=== PATIENT | male | born 1955 | race Caucasian/White ===

== ENCOUNTER 2017-08-25 07:33 | Day surgery (SDC) | payer OTHER ==
[2017-08-25] MEDS ORDERED: PROPOFOL 20 ML (10:17)
[2017-08-25] MEDS ORDERED: MIDAZOLAM 1 MG/ML 2 ML INJ (10:17)
== END 2017-08-25 11:55 | disposition home or self-care (01) ==
LOC: GIL 07:33
DX: Z12.11 Encounter for screening for malignant neoplasm of colon (principal); K64.4 Residual hemorrhoidal skin tags; K64.8 Other hemorrhoids; Q43.8 Other specified congenital malformations of intestine; I10 Essential (primary) hypertension; E11.9 Type 2 diabetes mellitus without complications; E66.01 Morbid (severe) obesity due to excess calories; Z68.43 Body mass index [BMI] 50.0-59.9, adult
CPT/HCPCS: 45378; 82962

== ENCOUNTER 2017-12-08 23:28 | Inpatient (IN) | payer OTHER ==
[2017-12-09] MEDS ORDERED: ALBUTEROL/IPRATROPIUM (NEB) 3 ML AMP HHN (00:30)
[2017-12-09] MEDS ORDERED: ONDANSETRON 4 MG INJ IV (00:30)
[2017-12-09] MEDS ORDERED: GLUCOSE GEL 15 GRAM TUBE PO ×2 (00:30)
[2017-12-09] MEDS ORDERED: NACL 0.9% 3 ML SYG IV (00:30)
[2017-12-09] MEDS ORDERED: DEXTROSE 50% 50 ML SYRINGE IV ×2 (00:30)
[2017-12-09] MEDS ORDERED: ACETAMINOPHEN 650 MG SUPP PR (00:30)
[2017-12-09] MEDS ORDERED: GLUCAGON 1 MG INJ IM (00:30)
[2017-12-09] MEDS ORDERED: GLUCOSE GEL 15 GRAM TUBE BUCCAL (00:30)
[2017-12-09] MEDS: INSULIN ASPART [NOVOLOG] 3 ML PEN SC ×6 (00:33→21:00)
[2017-12-09] MEDS: DEXTROSE 5%-0.45% NACL 1,000 ML IV (00:33)
[2017-12-09 00:48] LABS: ADD MAN DIFF? NO
[2017-12-09 00:50] LABS: WHITE BLOOD COUNT 10.1 10^3/ul (4.8-10.8)
[2017-12-09 00:50] LABS: BASOPHILS % 0.1 % (0.0-2.0); EOSINOPHILS # 0.1 10^3/ul (0.0-0.5); EOSINOPHILS % 0.6 % (0.0-7.0); HEMATOCRIT 37.1 % (42.0-52.0); HEMOGLOBIN 11.9 g/dl (14.0-18.0); LYMPHOCYTES # 1.4 10^3/ul (0.8-2.9); LYMPHOCYTES % 13.8 % (15.0-51.0); MEAN CORPUSCULAR HEMOGLOBIN 29.2 pg (29.0-33.0); MEAN CORPUSCULAR HGB CONC 32.1 g/dl (32.0-37.0); MEAN CORPUSCULAR VOLUME 90.9 fl (82.0-101.0); MEAN PLATELET VOLUME 9.7 fl (7.4-10.4); MONOCYTE # 0.9 10^3/ul (0.3-0.9); MONOCYTES % 8.4 % (0.0-11.0); NEUTROPHIL # 7.7 10^3/ul (1.6-7.5); NEUTROPHILS % 76.8 % (39.0-77.0); PLATELET COUNT 167 10^3/UL (140-415); RED BLOOD COUNT 4.08 10^6/ul (4.70-6.10); RED CELL DISTRIBUTION WIDTH 15.6 % (11.5-14.5)
[2017-12-09 01:04] LABS: AADO2 Arterial 40.1 mmHg (7.0-24.0); Allen Test ACCEPTAB; Arterial Base Excess 2.5 mmol/L (-3.0-3); Arterial Blood Gas Oxygen Sat 98.2 mmHG (95.0-98.0); Arterial COHb 0.8 % (0.0-3.0); Arterial Fraction of Oxyhgb 97.4 % (93.0-99.0); Arterial HCO3 27.1 mmol/L (22.0-26.0); Arterial MetHb 0 % (0.0-1.5); Arterial Total Hemglobin 12.9 g/dl (12.0-18.0); Arterial pCO2 41.8 mmhg (35-45); MODE NASAL CANNULA; Site Right Radial
[2017-12-09 01:08] LABS: ALANINE AMINOTRANSFERASE 30 IU/L (13-69); ALBUMIN 3.5 g/dl (3.3-4.9); ALBUMIN/GLOBULIN RATIO 0.87; ALKALINE PHOSPHATASE 108 IU/L (42-121); ANION GAP 10 (8-16); ASPARTATE AMINO TRANSFERASE 32 IU/L (15-46); BILIRUBIN,INDIRECT 0.8 mg/dl (0-1.1); BILIRUBIN,TOTAL 0.8 mg/dl (0.2-1.3); BLOOD UREA NITROGEN 12 mg/dl (7-20); CALCIUM 8.8 mg/dl (8.4-10.2); CARBON DIOXIDE 34 mmol/L (21-31); CHLORIDE 98 mmol/L (97-110); CREATININE 0.59 mg/dl (0.61-1.24); GLUCOSE 141 mg/dl (70-220); MAGNESIUM 1.4 mg/dl (1.7-2.5); PHOSPHORUS 4.7 mg/dl (2.5-4.9); POTASSIUM 3.9 mmol/L (3.5-5.1); SODIUM 138 mmol/L (135-144); TOTAL PROTEIN 7.5 g/dl (6.1-8.1)
[2017-12-09] MEDS ORDERED: ACCU-CHEK XX (02:00)
[2017-12-09] MEDS: MAGNESIUM SULFATE 3 GM in DEXTROSE 5% 100 ML IVPB (02:11)
[2017-12-09] MEDS: morphine 2 MG INJ IV ×4 (08:08→21:42)
[2017-12-09] MEDS: THIAMINE 100 MG TAB PO (16:30)
[2017-12-09] MEDS: LACTATED RINGER'S 1,000 ML IV (16:30)
[2017-12-09] MEDS: INSULIN GLARGINE [LANTus] (100 UNITS/ML) SYG SC (20:00)
[2017-12-10] MEDS: INSULIN ASPART [NOVOLOG] 3 ML PEN SC ×6 (01:00→21:00)
[2017-12-10 05:07] LABS: ADD MAN DIFF? NO
[2017-12-10 05:33] LABS: BASOPHILS % 0.3 % (0.0-2.0); EOSINOPHILS # 0.1 10^3/ul (0.0-0.5); EOSINOPHILS % 0.7 % (0.0-7.0); HEMATOCRIT 37.1 % (42.0-52.0); HEMOGLOBIN 11.9 g/dl (14.0-18.0); LYMPHOCYTES # 1.3 10^3/ul (0.8-2.9); LYMPHOCYTES % 19.6 % (15.0-51.0); MEAN CORPUSCULAR HEMOGLOBIN 29.8 pg (29.0-33.0); MEAN CORPUSCULAR HGB CONC 32.1 g/dl (32.0-37.0); MEAN PLATELET VOLUME 10.1 fl (7.4-10.4); MONOCYTE # 0.6 10^3/ul (0.3-0.9); MONOCYTES % 9.3 % (0.0-11.0); NEUTROPHIL # 4.7 10^3/ul (1.6-7.5); PLATELET COUNT 153 10^3/UL (140-415); RED BLOOD COUNT 3.99 10^6/ul (4.70-6.10); RED CELL DISTRIBUTION WIDTH 15.2 % (11.5-14.5)
[2017-12-10 05:33] LABS: WHITE BLOOD COUNT 6.7 10^3/ul (4.8-10.8)
[2017-12-10 05:38] LABS: INR 1.14; PROTIME 14.8 Sec (11.9-14.9); PT RATIO 1.2
[2017-12-10 05:46] LABS: ALANINE AMINOTRANSFERASE 28 IU/L (13-69); ALKALINE PHOSPHATASE 87 IU/L (42-121); ASPARTATE AMINO TRANSFERASE 33 IU/L (15-46); TOTAL PROTEIN 6.8 g/dl (6.1-8.1)
[2017-12-10 05:57] LABS: ANION GAP 8 (8-16); BLOOD UREA NITROGEN 9 mg/dl (7-20); CALCIUM 8.8 mg/dl (8.4-10.2); CARBON DIOXIDE 34 mmol/L (21-31); CHLORIDE 100 mmol/L (97-110); CREATININE 0.54 mg/dl (0.61-1.24); GLUCOSE 112 mg/dl (70-220); MAGNESIUM 1.5 mg/dl (1.7-2.5); PHOSPHORUS 4.1 mg/dl (2.5-4.9); SODIUM 138 mmol/L (135-144)
[2017-12-10] MEDS: LACTATED RINGER'S 1,000 ML IV ×3 (06:35→23:50)
[2017-12-10 07:54] LABS: LIPASE 161 U/L (23-300)
[2017-12-10] MEDS: THIAMINE 100 MG TAB PO (09:00)
[2017-12-10] MEDS: MAGNESIUM SULFATE 4 GM/100 ML 100 ML IVPB (13:16)
[2017-12-10] MEDS: PANTOPRAZOLE 40 MG INJ IV (18:42)
[2017-12-10] MEDS: INSULIN GLARGINE [LANTus] (100 UNITS/ML) SYG SC (21:16)
[2017-12-11] MEDS: ACCUCHECK 2 AM XX (02:00)
[2017-12-11 05:27] LABS: ADD MAN DIFF? NO
[2017-12-11 05:30] LABS: BASOPHILS % 0.2 % (0.0-2.0); EOSINOPHILS % 0.8 % (0.0-7.0); HEMATOCRIT 38.4 % (42.0-52.0); HEMOGLOBIN 12.3 g/dl (14.0-18.0); LYMPHOCYTES # 1.5 10^3/ul (0.8-2.9); MEAN CORPUSCULAR HEMOGLOBIN 29.4 pg (29.0-33.0); MEAN CORPUSCULAR VOLUME 91.9 fl (82.0-101.0); MEAN PLATELET VOLUME 10.1 fl (7.4-10.4); MONOCYTE # 0.6 10^3/ul (0.3-0.9); NEUTROPHILS % 58.8 % (39.0-77.0); PLATELET COUNT 146 10^3/UL (140-415); RED BLOOD COUNT 4.18 10^6/ul (4.70-6.10); RED CELL DISTRIBUTION WIDTH 15.3 % (11.5-14.5)
[2017-12-11 05:30] LABS: WHITE BLOOD COUNT 5.2 10^3/ul (4.8-10.8)
[2017-12-11] MEDS: PANTOPRAZOLE 40 MG INJ IV ×2 (05:33→17:06)
[2017-12-11 06:00] LABS: MAGNESIUM 1.7 mg/dl (1.7-2.5)
[2017-12-11 06:05] LABS: ALANINE AMINOTRANSFERASE 30 IU/L (13-69); ALBUMIN 3.3 g/dl (3.3-4.9); ALBUMIN/GLOBULIN RATIO 0.84; ALKALINE PHOSPHATASE 89 IU/L (42-121); AMYLASE 59 U/L (11-123); ANION GAP 8 (8-16); ASPARTATE AMINO TRANSFERASE 35 IU/L (15-46); BILIRUBIN,INDIRECT 0.8 mg/dl (0-1.1); BILIRUBIN,TOTAL 0.8 mg/dl (0.2-1.3); BLOOD UREA NITROGEN 8 mg/dl (7-20); CALCIUM 9.1 mg/dl (8.4-10.2); CARBON DIOXIDE 34 mmol/L (21-31); CHLORIDE 103 mmol/L (97-110); CREATININE 0.55 mg/dl (0.61-1.24); GLUCOSE 95 mg/dl (70-220); LIPASE 148 U/L (23-300); POTASSIUM 3.9 mmol/L (3.5-5.1); SODIUM 141 mmol/L (135-144); TOTAL PROTEIN 7.2 g/dl (6.1-8.1)
[2017-12-11 06:06] LABS: INR 1.14; PROTIME 14.8 Sec (11.9-14.9); PT RATIO 1.2
[2017-12-11 06:07] LABS: PARTIAL THROMBOPLASTIN TIME 39.4 Sec (25.0-35.0)
[2017-12-11] MEDS ORDERED: INSULIN ASPART [NOVOLOG] 3 ML PEN SC ×2 (07:20→13:00)
[2017-12-11] MEDS: Insulin NOVOLOG SS MILD Algorithm (SS with meals and bedtime) SC (08:30)
[2017-12-11] MEDS: THIAMINE 100 MG TAB PO (08:31)
[2017-12-11] MEDS: Insulin NOVOLOG SS MILD Algorithm (NPO/TPN/ENTERAL FEEDS) SC ×3 (12:49→21:00)
[2017-12-11] MEDS: LACTATED RINGER'S 1,000 ML IV (18:27)
[2017-12-11] MEDS: INSULIN GLARGINE [LANTus] (100 UNITS/ML) SYG SC (20:00)
[2017-12-11] MEDS ORDERED: morphine LIQ (10 MG/5 ML) CUP PO (22:30)
[2017-12-12] MEDS: Insulin NOVOLOG SS MILD Algorithm (NPO/TPN/ENTERAL FEEDS) SC ×6 (01:00→21:00)
[2017-12-12] MEDS: ACCUCHECK 2 AM XX (02:00)
[2017-12-12] MEDS: PANTOPRAZOLE 40 MG INJ IV ×2 (05:15→17:05)
[2017-12-12 05:16] LABS: ADD MAN DIFF? NO
[2017-12-12 05:18] LABS: BASOPHILS % 0.3 % (0.0-2.0); EOSINOPHILS # 0.1 10^3/ul (0.0-0.5); HEMATOCRIT 37.9 % (42.0-52.0); HEMOGLOBIN 12.2 g/dl (14.0-18.0); LYMPHOCYTES # 1.5 10^3/ul (0.8-2.9); MEAN CORPUSCULAR HGB CONC 32.2 g/dl (32.0-37.0); MEAN CORPUSCULAR VOLUME 93.3 fl (82.0-101.0); MEAN PLATELET VOLUME 9.4 fl (7.4-10.4); MONOCYTE # 0.7 10^3/ul (0.3-0.9); MONOCYTES % 11.6 % (0.0-11.0); NEUTROPHIL # 3.7 10^3/ul (1.6-7.5); NEUTROPHILS % 62.1 % (39.0-77.0); PLATELET COUNT 139 10^3/UL (140-415); POSITIVE DIFF @See below; RED BLOOD COUNT 4.06 10^6/ul (4.70-6.10); RED CELL DISTRIBUTION WIDTH 15.2 % (11.5-14.5)
[2017-12-12 05:35] LABS: INR 1.19; PROTIME 15.3 Sec (11.9-14.9); PT RATIO 1.2
[2017-12-12 05:36] LABS: AMMONIA 20 umol/l (9-30)
[2017-12-12 05:41] LABS: CHOL/HDL RATIO 2.8 RATIO; CHOLESTEROL 105 mg/dl (100-200); HDL CHOLESTEROL 37 mg/dl (30-78); LDL CHOLESTEROL,CALCULATED 54 mg/dl; MAGNESIUM 1.5 mg/dl (1.7-2.5); TRIGLYCERIDES 68 mg/dl (0-149)
[2017-12-12 05:41] LABS: PHOSPHORUS 4.5 mg/dl (2.5-4.9)
[2017-12-12 05:50] LABS: ALANINE AMINOTRANSFERASE 29 IU/L (13-69); ALBUMIN 3.3 g/dl (3.3-4.9); ALBUMIN/GLOBULIN RATIO 0.82; ALKALINE PHOSPHATASE 88 IU/L (42-121); ANION GAP 9 (8-16); ASPARTATE AMINO TRANSFERASE 37 IU/L (15-46); BLOOD UREA NITROGEN 9 mg/dl (7-20); CARBON DIOXIDE 33 mmol/L (21-31); CHLORIDE 104 mmol/L (97-110); CREATININE 0.64 mg/dl (0.61-1.24); GLUCOSE 89 mg/dl (70-220); POTASSIUM 4.1 mmol/L (3.5-5.1); SODIUM 142 mmol/L (135-144); TOTAL PROTEIN 7.3 g/dl (6.1-8.1)
[2017-12-12] MEDS: THIAMINE 100 MG TAB PO (08:13)
[2017-12-12] MEDS: MAGNESIUM SULFATE 2 GM/50 ML 50 ML IVPB (13:33)
[2017-12-12] MEDS: LACTATED RINGER'S 1,000 ML IV (13:33)
[2017-12-12] MEDS ORDERED: LIDOCAINE 2% (SDV) 5 ML INJ (17:14)
[2017-12-12] MEDS ORDERED: FENTAnyl 50 MCG/ML VIAL (17:14)
[2017-12-12] MEDS ORDERED: MIDAZOLAM 1 MG/ML 2 ML INJ (17:14)
[2017-12-12] MEDS ORDERED: PROPOFOL 20 ML (17:14)
[2017-12-12] MEDS ORDERED: ONDANSETRON 4 MG INJ IV (17:30)
[2017-12-12] MEDS ORDERED: LABETALOL HCL 20MG INJ (17:37)
[2017-12-12] MEDS: INSULIN ASPART [NOVOLOG] 3 ML PEN SC (18:00)
[2017-12-12] MEDS: INSULIN GLARGINE [LANTus] (100 UNITS/ML) SYG SC (21:15)
[2017-12-13] MEDS ORDERED: ACCU-CHEK XX (02:00)
[2017-12-13] MEDS: ACCUCHECK 2 AM XX (02:00)
[2017-12-13] MEDS: LACTATED RINGER'S 1,000 ML IV (04:18)
[2017-12-13 05:20] LABS: ADD MAN DIFF? NO
[2017-12-13 05:23] LABS: BASOPHILS % 0.4 % (0.0-2.0); EOSINOPHILS # 0.1 10^3/ul (0.0-0.5); EOSINOPHILS % 1.3 % (0.0-7.0); HEMATOCRIT 37.9 % (42.0-52.0); LYMPHOCYTES # 1.4 10^3/ul (0.8-2.9); LYMPHOCYTES % 27.4 % (15.0-51.0); MEAN CORPUSCULAR HEMOGLOBIN 29.1 pg (29.0-33.0); MEAN CORPUSCULAR HGB CONC 31.7 g/dl (32.0-37.0); MEAN PLATELET VOLUME 9.9 fl (7.4-10.4); MONOCYTE # 0.6 10^3/ul (0.3-0.9); MONOCYTES % 11.8 % (0.0-11.0); NEUTROPHIL # 3.1 10^3/ul (1.6-7.5); NEUTROPHILS % 58.9 % (39.0-77.0); PLATELET COUNT 137 10^3/UL (140-415); POSITIVE DIFF @See below; RED BLOOD COUNT 4.12 10^6/ul (4.70-6.10); RED CELL DISTRIBUTION WIDTH 15.3 % (11.5-14.5)
[2017-12-13 05:23] LABS: WHITE BLOOD COUNT 5.3 10^3/ul (4.8-10.8)
[2017-12-13] MEDS: PANTOPRAZOLE 40 MG INJ IV (05:33)
[2017-12-13 05:59] LABS: ALANINE AMINOTRANSFERASE 30 IU/L (13-69); ALBUMIN 3.3 g/dl (3.3-4.9); ALBUMIN/GLOBULIN RATIO 0.82; ALKALINE PHOSPHATASE 84 IU/L (42-121); ANION GAP 9 (8-16); ASPARTATE AMINO TRANSFERASE 43 IU/L (15-46); BILIRUBIN,INDIRECT 0.9 mg/dl (0-1.1); BILIRUBIN,TOTAL 0.9 mg/dl (0.2-1.3); BLOOD UREA NITROGEN 8 mg/dl (7-20); CALCIUM 9.1 mg/dl (8.4-10.2); CARBON DIOXIDE 33 mmol/L (21-31); CHLORIDE 105 mmol/L (97-110); CREATININE 0.63 mg/dl (0.61-1.24); GLUCOSE 96 mg/dl (70-220); POTASSIUM 4.2 mmol/L (3.5-5.1); SODIUM 143 mmol/L (135-144); TOTAL PROTEIN 7.3 g/dl (6.1-8.1)
[2017-12-13 06:10] LABS: MAGNESIUM 1.6 mg/dl (1.7-2.5)
[2017-12-13] MEDS: INSULIN ASPART [NOVOLOG] 3 ML PEN SC ×2 (07:20→11:10)
[2017-12-13] MEDS: THIAMINE 100 MG TAB PO (08:42)
[2017-12-13] MEDS: MAGNESIUM SULFATE 2 GM/50 ML 50 ML IVPB (10:41)
== END 2017-12-13 14:19 | disposition home or self-care (01) | DRG 445 ==
LOC: MS1 12-09 11:19 → MS3 23:28
PROC: 0DB98ZX Excision of Duodenum, Via Natural or Artificial Opening Endoscopic, Diagnostic (ICD-10-PCS; principal; 2017-12-12 15:00)
PROC: 4A033R1 Measurement of Arterial Saturation, Peripheral, Percutaneous Approach (ICD-10-PCS; 2017-12-12 17:03)
DX: K80.20 Calculus of gallbladder without cholecystitis without obstruction (principal); Z68.43 Body mass index [BMI] 50.0-59.9, adult; K76.6 Portal hypertension; K26.9 Duodenal ulcer, unspecified as acute or chronic, without hemorrhage or perforation; E66.01 Morbid (severe) obesity due to excess calories; K74.60 Unspecified cirrhosis of liver; K83.8 Other specified diseases of biliary tract; E11.9 Type 2 diabetes mellitus without complications; I11.0 Hypertensive heart disease with heart failure; I50.9 Heart failure, unspecified; D64.9 Anemia, unspecified; E83.42 Hypomagnesemia; K64.8 Other hemorrhoids; K64.4 Residual hemorrhoidal skin tags; K55.20 Angiodysplasia of colon without hemorrhage; R16.1 Splenomegaly, not elsewhere classified; F10.10 Alcohol abuse, uncomplicated
CPT/HCPCS: 36600; 71046; 74181; 80048; 80053; 80061; 80076; 82140; 82150; 82803; 82962; 83036; 83690; 83735; 84100; 85025; 85610; 85730; 88305